=== PATIENT | male | born 1960 | race Caucasian/White ===

== ENCOUNTER 2018-08-30 09:07 | Outpatient (CLI) | payer OTHER, SELFPAY ==
[2018-08-30 10:25] LABS: Cholesterol 170 mg/dL (50-200); Glucose 101 mg/dL (70-100); HDL Cholesterol 74 mg/dL (40-60); LDL CHOLESTEROL 88 mg/dL (<100); Triglyceride 75 mg/dL (30-150)
== END 2018-08-30 09:27 ==
PROVIDERS: PCP Family Medicine; Visit Provider General Practice
DX: Z00.00 Encounter for general adult medical examination without abnormal findings (principal); Z13.220 Encounter for screening for lipoid disorders; Z13.1 Encounter for screening for diabetes mellitus
CPT/HCPCS: 36415; 80061; 82947; 83721

== ENCOUNTER 2020-10-03 11:55 | Outpatient (CLI) | payer OTHER, SELFPAY ==
--- NOTE | 2020-10-03 10:45 | DI.RAD_ITS ---
EXAM: XR HIP RT COMPLETE AP PELVIS CLINICAL HISTORY: pain. TECHNIQUE: 2D digital imaging was performed. COMPARISON: CR RT HIP COMPLETE AP PELVIS from 06/16/2016 FINDINGS: BONES: There are stable post operative changes present. No fracture or dislocation. The lateral aspe ct of the greater trochanter was coned from view on the examination. JOINTS: The joint spaces are well maintained. No joint effusion is present. SOFT TISSUE: Normal. IMPRESSION: Stable postoperative changes. DATA REPOSITORY: RADIATION DOSE DELIVERED:
== END 2020-10-03 12:15 ==
PROVIDERS: PCP Family Medicine; Referring Provider Family Medicine; Visit Provider Orthopaedic Surgery
DX: M25.551 Pain in right hip (principal)
CPT/HCPCS: 73502